=== PATIENT | female | born 1965 | race Caucasian/White ===

== ENCOUNTER → 2017-10-27 15:38 | Outpatient (CLI) | payer MEDICARE, SELFPAY ==
--- NOTE | 2017-10-27 15:53 | RAD_ITS ---
STUDY: X-RAY - RIGHT KNEE REASON FOR EXAM: Female, 52 years old. Chronic pain, arthritis. TECHNIQUE: 4 view(s) of the knee. COMPARISON: None. FINDINGS: There is no fracture or dislocation. Trace fluid is noted in the suprapatellar bursa. There is mild narrowing of the medial compartment. There is mild medial and lateral compartment spurring. Soft tissues and bony structures are otherwise unremarkable. RAD/Knee 4 or More Views IMPRESSION: 1. Trace joint effusion. 2. Mild osteoarthrosis. Electronically Signed: Toma Myrick MD at 16:56 EDT Tel , Service support ,
[2017-10-27 18:03] LABS: ALB/GLOB Ratio 1.1 RATIO (0.9-2.4); AST(SGOT) 16 U/L (15-37); Alanine Aminotransfer ALT/SGPT 18 U/L (13-56); Albumin, Serum 3.4 g/dL (3.2-5.0); Alkaline Phosphatase 168 U/L (45-117); Anion Gap 9 (5-15); BUN 4 mg/dL (7-18); BUN/Creat Ratio 5.9 RATIO (10-20); Calcium,Total 8.6 mg/dL (8.5-10.1); Chloride 109 mmol/L (98-107); Creatinine, Serum 0.68 mg/dL (0.55-1.02); EST Glomerular Filtration Rate 97 mL/min (>60); Est Glom Filt Rate - Afr Amer 117 mL/min (>60); Globulin 3.2 g/dL (2.2-4.2); Glucose 80 mg/dL (74-106); Potassium 4.4 mmol/L (3.5-5.1); Protein, Total 6.6 g/dL (6.4-8.2); Sodium Level 139 mmol/L (136-145); Thyroid Stim Hormone (TSH) 1.28 uIU/mL (0.358-3.74)
[2017-10-27 21:22] LABS: Hematocrit 42.1 % (37-47); Hemoglobin 13.6 g/dl (12.0-15.0); Mean Corpuscular Volume 88.8 fL (81-99); Red Blood Count 4.74 M/mm3 (4.2-5.4); White Blood Count 10.4 K/mm3 (4.4-11.0)
[2017-10-27 21:23] LABS: Absolute Lymphocyte Count 2.29 X10^3/ul (0.83-4.51); Absolute Neutrophil Count 7.2 X10^3/uL (2.0-7.7); Basophil# 0.07 X10^3/uL; Basophil% 0.7 % (0-1); Eosinophil# 0.18 X10^3/uL; Eosinophils% 1.7 % (0-5); Lymphocyte # 2.29 X10^3/ul (4.0); Mean Corp Hgb Conc 32.3 g/gl (32-36); Mean Corpuscular Hgb 28.7 pg (27.0-32.0); Mean Platelet Vol. 12.1 fl (6.2-12.0); Monocyte# 0.64 X10^3/uL; Monocyte% 6.2 % (0-10); Neutrophil # 7.21 X10^3/uL (2.7-7.7); Neutrophil % 69.3 % (47-70); POSITIVE COUNT NO; POSITIVE DIFFERENTIAL NO; POSITIVE MORPHOLOGY NO; Platelet Count 196 K/mm3 (150-450); RBC Distribution Width CV 14.5 % (11.6-14.6)
[2017-10-29 11:31] LABS: Hep C Antibodies 0.1 s/co ratio (0.0-0.9)
== END ==
PROVIDERS: Family Provider Family Medicine Geriatric Medicine; PCP Family Medicine Geriatric Medicine; Visit Provider Family Medicine Geriatric Medicine
DX: M25.579 Pain in unspecified ankle and joints of unspecified foot (principal); M54.5 Low back pain; M25.569 Pain in unspecified knee; I10 Essential (primary) hypertension; Z13.89 Encounter for screening for other disorder
CPT/HCPCS: 36415; 72100; 73564; 73610; 80053; 84443; 85025; 86803